=== PATIENT | male | born 1990 ===

== ENCOUNTER → 2020-11-28 | Outpatient (CLI) | payer OTHER ==
[~2020-11-28] MED LIST: AMBIEN 5MG TABLE5 MG PO; AMOXICILLIN 50500 MG PO; BIAXIN 500MG T500 MG PO; INDERAL 20MG20 MG PO; NORVASC 5MG5 MG/TAB PO; PROTONIX 40MG T40 MG PO; ZOLOFT 100MG100 MG PO
== END ==
LOC: COL.RAD 06:29
DX: R10.11 Right upper quadrant pain (principal); R11.2 Nausea with vomiting, unspecified
CPT/HCPCS: A9537

== ENCOUNTER 2020-12-02 07:24 | Day surgery (SDC) | payer OTHER ==
[~2020-12-02] VITALS: Ht 185.4 cm; Wt 89.1 kg
[2020-12-02] MEDS ORDERED: AMOXICILLIN 50500 MG PO (07:52)
[2020-12-02] MEDS ORDERED: NORVASC 5MG5 MG/TAB PO (07:52)
[2020-12-02] MEDS ORDERED: PROTONIX 40MG T40 MG PO (07:53)
[2020-12-02] MEDS ORDERED: BIAXIN 500MG T500 MG PO (07:53)
[2020-12-02] MEDS ORDERED: INDERAL 20MG20 MG PO (07:53)
[2020-12-02] MEDS ORDERED: AMBIEN 5MG TABLE5 MG PO (07:54)
[2020-12-02] MEDS ORDERED: ZOLOFT 100MG100 MG PO (07:54)
--- NOTE | 2020-12-02 07:56 | NUR ---
PATIENT ANSWERED YES TO QUESTIONS ON SUICIDE ASSESSMENT. SCORED HIGH RISK. PATIENT STATES HE IS ON MEDICATION AND SEEING A THERAPIST THAT IS HELPING REDUCING THOUGHTS OF HARMING SELF. PATIENT STATES HE IS GOOD WITH THE SUPPORT SYSTEM THAT IS CURRENTLY HELPING.
[2020-12-02 08:01] VITALS: BP 136/59; PULSE 85; TEMP 98.3
[2020-12-02 09:50] VITALS: BP 117/77; PULSE 77; TEMP 97.7
--- NOTE | 2020-12-02 09:50 | NUR ---
PATIENT TRANSPORTED PER CART FROM [facility] SUITE TO [place] [facility] ACCOMPANIED BY TONY RN. PATIENT AMBULATED FROM CART TO CHAIR WITH 1 ASSIST. SLOW STEADY GAIT. MONITORS APPLIED. VSS. PATIENT TALKS WITH STAFF. PATIENT GIVEN MUFFIN AND CRANBERRY JUICE.
[2020-12-02 10:00] VITALS: BP 122/81; PULSE 71
[2020-12-02 10:15] VITALS: BP 137/91; PULSE 72
--- NOTE | 2020-12-02 10:20 | NUR ---
VSS ON ROOM AIR. SPEAKS WITH PATIENT. DISCHARGE INSTRUCTIONS GIVEN VERBAL AND DISCHARGE PACKET GIVEN TO PATIENT. QUESTIONS ANSWERED. PATIENT VOICED UNDERSTANDING. PATIENT CHANGES INTO STREET CLOTHES. 1030 PATIENT DISCHARED PER WHEEL CHAIR ACCOMPANIED BY TORRIE RN TO PRIVATE VECRILE DRIVEN BY FRIEND.
[2020-12-02 10:30] VITALS: BP 142/86; PULSE 69
== END 2020-12-02 10:30 | disposition home or self-care (01) ==
LOC: SDCO 07:24
DX: K21.00 Gastro-esophageal reflux disease with esophagitis, without bleeding (principal); B96.81 Helicobacter pylori [H. pylori] as the cause of diseases classified elsewhere; I10 Essential (primary) hypertension; G47.00 Insomnia, unspecified; F32.9 Major depressive disorder, single episode, unspecified; F41.9 Anxiety disorder, unspecified; F43.20 Adjustment disorder, unspecified; Z20.822 Contact with and (suspected) exposure to COVID-19; Z87.891 Personal history of nicotine dependence; Z79.899 Other long term (current) drug therapy
CPT/HCPCS: J2704; J7030